=== PATIENT | female | born 1985 | race Two or more races ===

== ENCOUNTER 2017-10-08 06:46 | Emergency (ER) | payer OTHER ==
[2017-10-08 07:10] VITALS: BP 136/75; PULSE 70; TEMP 97.9; BMI 26.6
--- NOTE | 2017-10-08 07:46 | PDOC ---
History of Present Illness - General Chief Complaint: Pain Stated Complaint: FALL,LT ELBOW PAIN Time Seen by Provider: 10/08/17 07:40 History Source: Patient - History of Present Illness Occurred: reports: this morning Upper Extremity Pain Location: left: elbow Method of Injury: reports: fell Past History - Past Medical History Allergies/Adverse Reactions: Allergies Allergy/AdvReac Type Severity Reaction Status Date / Time No Known Allergies Allergy Verified 10/08/17 07:06 Home Medications: Ambulatory Orders NK [No Known Home Medication] 08/06/16 COPD: No Other medical history: Pt denies - Surgical History Abdominal Surgery: No Appendectomy: No Cardiac Surgery: No Cholecystectomy: No Gastric Stapling: No GI Surgery: No Lung Surgery: No Neurologic Surgery: No Orthopedic Surgery: No - Suicide/Smoking/Psychosocial Hx Smoking History: Never smoked Have you smoked in the past 12 months: No Information on smoking cessation initiated: No Hx Alcohol Use: No Drug/Substance Use Hx: No Substance Use Type: None Review of Systems - Review of Systems Musculoskeletal: Yes: Joint Pain, Joint Swelling *Physical Exam - Vital Signs Last Vital Signs Temp Pulse Resp BP Pulse Ox 97.9 F 70 18 136/75 100 10/08/17 07:07 10/08/17 07:07 10/08/17 07:07 10/08/17 07:07 10/08/17 07:07 - Physical Exam General Appearance: Yes: Appropriately Dressed. No: Apparent Distress HEENT: positive: Normal Voice Neck: positive: Supple Respiratory/Chest: negative: Respiratory Distress Extremity: positive: Tender, Swelling (minimal swelling to lateral aspect of L elbow, FROMI, NVI) Integumentary: positive: Dry, Warm Neurologic: positive: Fully Oriented, Alert, Normal Mood/Affect ED Treatment Course - ADDITIONAL ORDERS Additional order review: Laboratory Results 10/08/17 07:10 Urine HCG, Qual Negative - RADIOLOGY Radiology Studies Ordered: Category Date Time Status ELBOW-LEFT [RAD] Stat Radiology 10/08/17 07:43 Ordered Medical Decision Making - Medical Decision Making 10/08/17 07:44 32-year-old female, no significant history, here with left elbow pain status post fall. Patient states this a.m. while departing her home, she slipped and fell onto ice outdoors. Fell mostly onto buttocks and struck right elbow in the process. Denies head injury, LOC, headache, dizziness, nausea or vomiting. No back/neck pain See exam M/l elbow sprain R/o fx -pain control 10/08/17 08:33 Xray neg as per radiology. Sling given for comfort. Pt to take motrin as needed for pain. Ortho f/u as needed 10/08/17 09:20 *DC/Admit/Observation/Transfer Diagnosis at time of Disposition: Elbow sprain Qualifiers: Encounter type: initial encounter Laterality: left Qualified Code(s): S53.402A - Unspecified sprain of left elbow, initial encounter - Discharge Dispostion Disposition: HOME Condition at time of disposition: Good - Referrals Referrals: Fay Kapadia MD [Primary Care Provider] - Bharat Rasmussen MD [Staff Physician] - - Patient Instructions Printed Discharge Instructions: Elbow Sprain Additional Instructions: Your x-ray did not show any fracture. Use sling for support and take Motrin as needed for pain. If pain persists beyond 2 weeks, please follow-up with Dr. Rasmussen of orthopedics - Post Discharge Activity
[2017-10-08] MEDS ORDERED: ACETAMINOPHEN 325 MG TABLET (FP) PO ONE (07:47)
--- NOTE | 2017-10-08 08:08 | PDOC ---
*Physical Exam - Vital Signs Last Vital Signs Temp Pulse Resp BP Pulse Ox 97.9 F 70 18 136/75 100 10/08/17 07:07 10/08/17 07:07 10/08/17 07:07 10/08/17 07:07 10/08/17 07:07 - Physical Exam Comments: 10/08/17 08:07 The patient was examined by [COOKIE Estrada] under my direct supervision. I personally evaluated the patient. I concur with the above findings and the plan of care. ED Treatment Course - ADDITIONAL ORDERS Additional order review: Laboratory Results 10/08/17 07:10 Urine HCG, Qual Negative *DC/Admit/Observation/Transfer Diagnosis at time of Disposition: Elbow sprain Qualifiers: Encounter type: initial encounter Laterality: left Qualified Code(s): S53.402A - Unspecified sprain of left elbow, initial encounter - Discharge Dispostion Condition at time of disposition: Good - Referrals Referrals: Fay Kapadia MD [Primary Care Provider] - - Patient Instructions Printed Discharge Instructions: Elbow Sprain - Post Discharge Activity
[2017-10-08] MEDS ORDERED: ACETAMINOPHEN 325 MG TABLET (FP) ONE (08:25)
== END 2017-10-08 09:20 | disposition home or self-care (01) ==
LOC: JER 06:46
DX: S53.402A Unspecified sprain of left elbow, initial encounter (principal); W00.2XXA Other fall from one level to another due to ice and snow, initial encounter; Y93.89 Activity, other specified; Y92.480 Sidewalk as the place of occurrence of the external cause; Y99.8 Other external cause status
CPT/HCPCS: 73070-TC-LT-FY; 84703; 99282-25